=== PATIENT | male | born 1955 | race Two or more races ===

== ENCOUNTER 2019-12-24 05:09 | Emergency (ER) | payer OTHER ==
[~2019-12-24] VITALS: Ht 185.4 cm; Wt 97.5 kg
[2019-12-24 05:20] VITALS: BP 108/71
== END 2019-12-24 09:45 | disposition home or self-care (01) ==
LOC: ER 05:09
DX: U07.1 COVID-19 (principal); J06.9 Acute upper respiratory infection, unspecified
CPT/HCPCS: 36415; 71045; 87426